=== PATIENT | female | born 1980 | race American Indian/Alaskan Native ===

== ENCOUNTER 2018-07-12 19:47 | Emergency (ER) | payer OTHER ==
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
[2018-07-13 00:41] VITALS: BP 116/72
== END 2018-07-13 00:05 | disposition home or self-care (01) ==
LOC: ED 19:47
DX: S40.011A Contusion of right shoulder, initial encounter (principal); M54.2 Cervicalgia; M79.644 Pain in right finger(s); X58.XXXA Exposure to other specified factors, initial encounter; Y93.89 Activity, other specified; Y92.488 Other paved roadways as the place of occurrence of the external cause; Y99.8 Other external cause status
CPT/HCPCS: 72040